=== PATIENT | male | born 1970 ===

== ENCOUNTER 2018-11-09 05:56 | Emergency (ER) | payer MEDICARE, OTHER ==
[~2018-11-09] VITALS: Ht 182.9 cm; Wt 108.9 kg
== END 2018-11-09 08:38 | disposition home or self-care (01) ==
LOC: ER 05:56 → EDBD 05:56 → ER 08:38
DX: M75.32 Calcific tendinitis of left shoulder (principal); I10 Essential (primary) hypertension; Z86.73 Personal history of transient ischemic attack (TIA), and cerebral infarction without residual deficits; Z87.891 Personal history of nicotine dependence
CPT/HCPCS: 73030; 96372; 99282; 99283; 99283-25; A9270; J3301

== ENCOUNTER 2019-02-06 07:54 | Day surgery (SDC) | payer MEDICARE, OTHER ==
[~2019-02-06] VITALS: Ht 182.9 cm; Wt 109.3 kg
[~2019-02-06 07:54] MED LIST: ALBU90OI INH; CARB200 PO; FAMO20 PO; FINA5 PO; GABA100 PO; HYDPAM50 PO; LISI5 PO; MELATONIN5 M1 PO; MONT10T PO; OMEPRAZOLE20 MG PO; THERA1 EACH PO; WARF10 PO
--- NOTE | 2019-02-06 08:41 | NUR ---
Ambulatory in Day Surgery Patient states colon prep results clear. History, Chart, Medications and Allergies reviewed before start of procedure. Patient States Post-Procedure ride home has been arranged.
--- NOTE | 2019-02-06 10:01 | NUR ---
02/06/19 1001 BARB HYDE History, Chart, Medications and Allergies reviewed before start of procedure.3-LEAD EKG REVIEWED WITH PHYSICIAN PRIOR TO START OF PROCEDURE.O2 VIA N/C INTACT THROUGHOUT SEDATION/PROCEDURE. MONITOR INTACT WITH CONTINUOUS PULSE OXIMETRY AND INTERMITTENT BP.PATIENT DETERMINED TO BE ASA APPROPRIATE FOR PROPOFOL SEDATION PRIOR TO START OF PROCEDURE BY .
--- NOTE | 2019-02-06 11:45 | NUR ---
Patient up to Ambulate independently. Gait steady. Discharge instructions reviewed with patient. Patient verbalizes understanding. Copy given to patient to take home. PATIENT'S RIDE CALLED X4 WITH NO ANSWER. RN LOOKED IN WAITING AREAS AND ADMITTING, RIDE WAS NOT THERE. ON THE 5TH CALL PT'S RIDE ANSWERED AND STATED HE WAS HERE. Discharged via wheelchair to private car for ride home WITH [employer].
== END 2019-02-06 11:15 | disposition home or self-care (01) ==
LOC: ORSCMMR 07:54 → ORD 09:00 → ORSCMMR 09:00
PROVIDERS: Internal Medicine Gastroenterology
PROC: 0DB48ZX Excision of Esophagogastric Junction, Via Natural or Artificial Opening Endoscopic, Diagnostic (ICD-10-PCS; principal; 2019-02-06 09:00)
PROC: 0DB58ZX Excision of Esophagus, Via Natural or Artificial Opening Endoscopic, Diagnostic (ICD-10-PCS; principal; 2019-02-06 09:00)
PROC: 0DJD8ZZ Inspection of Lower Intestinal Tract, Via Natural or Artificial Opening Endoscopic (ICD-10-PCS; principal; 2019-02-06 09:00)
PROC: 0DB68ZX Excision of Stomach, Via Natural or Artificial Opening Endoscopic, Diagnostic (ICD-10-PCS; principal; 2019-02-06 09:00)
DX: R13.14 Dysphagia, pharyngoesophageal phase (principal); K21.9 Gastro-esophageal reflux disease without esophagitis; K29.70 Gastritis, unspecified, without bleeding; B96.81 Helicobacter pylori [H. pylori] as the cause of diseases classified elsewhere; Z12.11 Encounter for screening for malignant neoplasm of colon; Z86.010 Personal history of colon polyps; Z86.73 Personal history of transient ischemic attack (TIA), and cerebral infarction without residual deficits; G40.909 Epilepsy, unspecified, not intractable, without status epilepticus; Z86.718 Personal history of other venous thrombosis and embolism; Z79.01 Long term (current) use of anticoagulants; Z87.891 Personal history of nicotine dependence; Z79.899 Other long term (current) drug therapy; J45.909 Unspecified asthma, uncomplicated
CPT/HCPCS: 43239; G0105; 88305; 88342; J2704; J7120

== ENCOUNTER 2019-10-06 10:58 | Emergency (ER) | payer MEDICARE, OTHER ==
[~2019-10-06] VITALS: Ht 182.9 cm; Wt 111.1 kg
[2019-10-06] MEDS ORDERED: EPIPEN0.3 MG/0.1 INJ (12:34)
[2019-10-06] MEDS ORDERED: FAMO20 PO (12:34)
[2019-10-06] MEDS ORDERED: PRED20 PO (12:34)
== END 2019-10-06 12:51 | disposition home or self-care (01) ==
LOC: ER 10:58
DX: T63.441A Toxic effect of venom of bees, accidental (unintentional), initial encounter (principal); I10 Essential (primary) hypertension; Z86.73 Personal history of transient ischemic attack (TIA), and cerebral infarction without residual deficits; Z79.899 Other long term (current) drug therapy; Z87.891 Personal history of nicotine dependence
CPT/HCPCS: 36415; 96374; 96375; 99283-25; J1100; J1200

== ENCOUNTER 2020-03-13 01:41 | Emergency (ER) | payer MEDICARE, OTHER ==
[~2020-03-13] VITALS: Ht 182.9 cm; Wt 115.2 kg
[~2020-03-13 01:41] MED LIST changes: +EPIPEN0.3 MG/0.1 INJ; +PRED20 PO
[2020-03-13] MEDS ORDERED: XARELTO20 MG PO (04:14)
[2020-03-13 06:26] LABS: Source, Urine Clean Catch
[2020-03-13 06:35] LABS: BASOPHILS ABSOLUTE AUTO 0.02 K/mm3 (0.00-0.23); BASOPHILS PERCENT AUTO 0 % (0-2); EOSINOPHILS ABSOLUTE AUTO 0.15 K/mm3 (0.00-0.68); EOSINOPHILS PERCENT AUTO 3 % (0-6); Hematocrit 45.5 % (37.0-53.0); Hemoglobin 15.1 g/dL (13.5-17.5); IMMATURE GRAN ABSOLUTE AUTO 0.02 K/mm3 (0.00-0.10); IMMATURE GRAN PERCENT AUTO 0 % (0-1); LYMPHOCYTES ABSOLUTE AUTO 2.38 K/mm3 (0.84-5.20); LYMPHOCYTES PERCENT AUTO 47 % (21-46); MONOCYTES ABSOLUTE AUTO 0.39 K/mm3 (0.16-1.47); MONOCYTES PERCENT AUTO 8 % (4-13); Mean Corpuscular HGB 30.7 pg (26.0-34.0); Mean Corpuscular HGB Conc 33.2 g/dL (31.5-36.5); Mean Corpuscular Volume 93 fL (80-100); Mean Platelet Volume 9.4 fL (9.1-12.4); NEUTROPHILS ABSOLUTE AUTO 2.06 K/mm3 (1.96-9.15); NEUTROPHILS PERCENT AUTO 41 % (41-73); Platelet Count 210 K/mm3 (150-400); RDW Standard Deviation 41.1 fL (35.1-46.3); Red Blood Cell Count 4.92 M/mm3 (4.30-5.90); White Blood Cell Count 5.02 K/mm3 (4.00-11.30)
[2020-03-13 06:35] LABS: Appearance, Urine Clear (Clear); Bilirubin, Urine Neg (Neg); Blood, Urine Neg (Neg); Color, Urine Yellow (P-Yellow); Glucose Qualitative, Urine Neg (Neg); Ketones, Urine Neg (Neg); Leukocyte Esterase, Urine Neg (Neg); Nitrite, Urine Neg (Neg); Protein, Urine Neg (Neg); Urobilinogen, Urine NORM (Normal)
[2020-03-13 06:54] LABS: Alanine Aminotransfer (ALT/SGP 34 U/L (12-78); Albumin, Blood 3.9 g/dL (3.4-5.0); Albumin/Globulin Ratio 1.2 (0.8-1.8); Alk Phos 137 U/L (50-136); Anion Gap 3 mmol/L (6-16); Aspartate Aminotrans (AST/SGOT 15 U/L (12-37); Bilirubin, Total 0.4 mg/dL (0.1-1.0); Blood Urea Nitrogen 22 mg/dL (8-24); Bun/Creatinine Ratio 24.4 (12.0-20.0); CO2, Blood 31 mmol/L (21-32); Calcium, Blood 8.6 mg/dL (8.5-10.1); Chloride, Blood 107 mmol/L (98-108); Globulin, Blood 3.2 g/dL (2.2-4.0); Glomerular Filtration Rate >60 (60-); Glucose, Blood 93 mg/dL (70-99); Potassium, Blood 4.1 mmol/L (3.5-5.5); Sodium, Blood 141 mmol/L (136-145); Total Protein, Blood 7.1 g/dL (6.4-8.2)
[2020-03-13] MEDS ORDERED: DOC250 PO (09:46)
[2020-03-13] MEDS ORDERED: HYDACE10B PO (09:46)
== END 2020-03-13 10:24 | disposition home or self-care (01) ==
LOC: ER 01:41
PROVIDERS: Emergency Medicine
DX: K42.9 Umbilical hernia without obstruction or gangrene (principal); I10 Essential (primary) hypertension; Z79.01 Long term (current) use of anticoagulants; Z79.899 Other long term (current) drug therapy; Z86.73 Personal history of transient ischemic attack (TIA), and cerebral infarction without residual deficits; Z87.891 Personal history of nicotine dependence
CPT/HCPCS: 36415; 74177; 80053; 81003; 83690; 85025; 96361; 96374-59; 96375; 99283-25; J1170; J2270; J2405; J7030; Q9967

== ENCOUNTER 2020-04-16 07:12 | Day surgery (SDC) | payer MEDICARE, SELFPAY ==
[~2020-04-16] VITALS: Ht 182.9 cm; Wt 116.6 kg
[~2020-04-16 07:12] MED LIST changes: +DOC250 PO; +HYDACE10B PO; +XARELTO20 MG PO
--- NOTE | 2020-04-16 10:30 | NUR ---
Patient up to Ambulate independently. Gait steady. Discharge instructions reviewed with patient. Patient verbalizes understanding. Copy given to patient to take home. Discharged via wheelchair to private car for ride home WITH SIGNIFICANT OTHER. PT GIVEN ICEPACK TO TAKE HOME.
== END 2020-04-16 10:30 | disposition home or self-care (01) ==
LOC: ORSCMMR 07:12 → ORD 08:30 → ORSCMMR 08:30
PROVIDERS: Surgery
PROC: 0WUF0JZ Supplement Abdominal Wall with Synthetic Substitute, Open Approach (ICD-10-PCS; principal; 2020-04-16 08:30)
DX: K42.0 Umbilical hernia with obstruction, without gangrene (principal); Z98.84 Bariatric surgery status; R56.9 Unspecified convulsions; F32.9 Major depressive disorder, single episode, unspecified; Z86.718 Personal history of other venous thrombosis and embolism; Z79.01 Long term (current) use of anticoagulants; Z79.899 Other long term (current) drug therapy; Z87.891 Personal history of nicotine dependence
CPT/HCPCS: C1781; J0690; J1100; J1885; J2250; J2405; J2704; J3010; J7120

== ENCOUNTER 2020-06-03 20:39 | Emergency (ER) | payer OTHER, MEDICARE ==
[~2020-06-03] VITALS: Ht 182.9 cm; Wt 108.9 kg
== END 2020-06-03 22:55 | disposition home or self-care (01) ==
LOC: ER 20:39
DX: S00.03XA Contusion of scalp, initial encounter (principal); F10.129 Alcohol abuse with intoxication, unspecified; I10 Essential (primary) hypertension; Z79.01 Long term (current) use of anticoagulants; Z79.899 Other long term (current) drug therapy; Z86.73 Personal history of transient ischemic attack (TIA), and cerebral infarction without residual deficits; W01.198A Fall on same level from slipping, tripping and stumbling with subsequent striking against other object, initial encounter
CPT/HCPCS: 70450; 99284-25

== ENCOUNTER 2020-06-04 12:09 | Emergency (ER) | payer OTHER, MEDICARE ==
[~2020-06-04] VITALS: Ht 180.3 cm; Wt 113.4 kg
== END 2020-06-04 13:52 | disposition home or self-care (01) ==
LOC: ER 12:09
DX: S09.90XA Unspecified injury of head, initial encounter (principal); I10 Essential (primary) hypertension; Z91.030 Bee allergy status; Z79.899 Other long term (current) drug therapy; Z86.73 Personal history of transient ischemic attack (TIA), and cerebral infarction without residual deficits; Z87.891 Personal history of nicotine dependence; W01.198A Fall on same level from slipping, tripping and stumbling with subsequent striking against other object, initial encounter
CPT/HCPCS: 70450; 99283-25

== ENCOUNTER 2022-01-13 08:48 | Observation (INO) | payer OTHER ==
[~2022-01-13] VITALS: Ht 182.9 cm; Wt 110.3 kg
[~2022-01-13 08:48] MED LIST changes: +Voltaren100 GM TOP
[2022-01-13 10:23] LABS: BASOPHILS ABSOLUTE AUTO 0.01 K/mm3 (0.00-0.23); BASOPHILS PERCENT AUTO 0 % (0-2); EOSINOPHILS ABSOLUTE AUTO 0.05 K/mm3 (0.00-0.68); EOSINOPHILS PERCENT AUTO 1 % (0-6); Hematocrit 45.9 % (37.0-53.0); Hemoglobin 15.6 g/dL (13.5-17.5); IMMATURE GRAN ABSOLUTE AUTO 0.01 K/mm3 (0.00-0.10); IMMATURE GRAN PERCENT AUTO 0 % (0-1); LYMPHOCYTES ABSOLUTE AUTO 1.47 K/mm3 (0.84-5.20); LYMPHOCYTES PERCENT AUTO 33 % (21-46); MONOCYTES ABSOLUTE AUTO 0.36 K/mm3 (0.16-1.47); MONOCYTES PERCENT AUTO 8 % (4-13); Mean Corpuscular HGB 30.8 pg (26.0-34.0); Mean Corpuscular Volume 91 fL (80-100); Mean Platelet Volume 9.1 fL (9.1-12.4); NEUTROPHILS ABSOLUTE AUTO 2.61 K/mm3 (1.96-9.15); NEUTROPHILS PERCENT AUTO 58 % (41-73); Platelet Count 230 K/mm3 (150-400); RDW Coefficient Variation 12.3 % (11.7-14.2); RDW Standard Deviation 40.6 fL (35.1-46.3); Red Blood Cell Count 5.06 M/mm3 (4.30-5.90); White Blood Cell Count 4.51 K/mm3 (4.00-11.30)
[2022-01-13 10:39] LABS: U Amphetamine Screen Not Detected; U Barbituate Screen Not Detected; U Benzodiazapine Screen Not Detected; U Buprenorphine Screen Not Detected; U Cannabinoids Screen Not Detected; U Cocaine Screen Not Detected; U Methadone Screen Not Detected; U Methamphetamine Screen Not Detected; U Opiates Screen Not Detected; U Oxycodone Screen Not Detected; U Phencyclidine Screen Not Detected; U Propoxyphene Screen Not Detected
[2022-01-13 10:51] LABS: Alanine Aminotransfer (ALT/SGP 26 U/L (12-78); Albumin, Blood 3.9 g/dL (3.4-5.0); Albumin/Globulin Ratio 1.1 (0.8-1.8); Alk Phos 119 U/L (50-136); Anion Gap 4 mmol/L (6-16); Aspartate Aminotrans (AST/SGOT 18 U/L (12-37); Bilirubin, Total 0.4 mg/dL (0.1-1.0); Blood Urea Nitrogen 11 mg/dL (8-24); Bun/Creatinine Ratio 15.7 (12.0-20.0); CO2, Blood 28 mmol/L (21-32); Calcium, Blood 8.9 mg/dL (8.5-10.1); Chloride, Blood 107 mmol/L (98-108); Ethanol (Alcohol), Blood, Med <3 mg/dL; Globulin, Blood 3.4 g/dL (2.2-4.0); Glomerular Filtration Rate 110 (60-); Glucose, Blood 101 mg/dL (70-99); Potassium, Blood 3.9 mmol/L (3.5-5.5); Sodium, Blood 139 mmol/L (136-145); Total Protein, Blood 7.3 g/dL (6.4-8.2)
[2022-01-13 12:54] LABS: Cholesterol 172 mg/dL (50-200); HDL Cholesterol 86 mg/dL (>39); LDL/HDL RATIO 0.9; Low Density Lipoprotein Chol 74 mg/dL (0-110); Triglycerides 62 mg/dL (30-160); Very Low Density Lipoprot Chol 12 mg/dL (6-32)
[2022-01-13] MEDS ORDERED: THERA-D2000 UNIT PO (14:41)
[2022-01-13] MEDS ORDERED: FISH OIL 1,2001 EAC7 PO (14:42)
--- NOTE | 2022-01-13 14:45 | NUR ---
ADMIT NOTE: PTREPORT RECEIVED FROM CHEIKH BENITEZ. PT ARRIVED TO ROOM 309 AT 309, IND TO BED. PT A/O X 4 PLEASANT AND COOPERATIVE. EXHIBITS LEFT FACIAL DROOP AND PAIN TO LEFT ARM CYRUS DEFICITS. PT PLACED ON TELE, ORIENTED TO ROOM AND CALL LIGHT. MED REC COMPLETED.
--- NOTE | 2022-01-13 18:47 | NUR ---
SHIFT SUMMARY: PT ADMITTED TODAY DUE TO LEFT SIDED WEAKNESS WITH ISCHEMIC CHANGES TO HEAD. PT A/O X4 IND ON ADMIT WITH COMPLAINTS OF LEFT FACIAL NUMBNESS, SLURRED SPPECH AND LEFT ARM WEAKNESS. PT HAD NO FURTHER COMPLAINTS THIS SHIFT AND REPORTED AT END OF SHIFT THE NUMBNESS ON LEFT SIDE OF FACE AND WEAKNESS IN ARM WAS IMPROVING. PT CURRENTLY SHOWERING AT THIS TIME AND DENIES ANY CONCERNS.
[2022-01-14 05:53] LABS: BASOPHILS ABSOLUTE AUTO 0.02 K/mm3 (0.00-0.23); BASOPHILS PERCENT AUTO 1 % (0-2); EOSINOPHILS ABSOLUTE AUTO 0.07 K/mm3 (0.00-0.68); EOSINOPHILS PERCENT AUTO 2 % (0-6); Hematocrit 44.7 % (37.0-53.0); Hemoglobin 15.1 g/dL (13.5-17.5); IMMATURE GRAN ABSOLUTE AUTO 0.01 K/mm3 (0.00-0.10); IMMATURE GRAN PERCENT AUTO 0 % (0-1); LYMPHOCYTES ABSOLUTE AUTO 1.46 K/mm3 (0.84-5.20); LYMPHOCYTES PERCENT AUTO 35 % (21-46); MONOCYTES ABSOLUTE AUTO 0.34 K/mm3 (0.16-1.47); MONOCYTES PERCENT AUTO 8 % (4-13); Mean Corpuscular HGB 31.1 pg (26.0-34.0); Mean Corpuscular HGB Conc 33.8 g/dL (31.5-36.5); Mean Corpuscular Volume 92 fL (80-100); Mean Platelet Volume 9.4 fL (9.1-12.4); NEUTROPHILS ABSOLUTE AUTO 2.25 K/mm3 (1.96-9.15); NEUTROPHILS PERCENT AUTO 54 % (41-73); Platelet Count 215 K/mm3 (150-400); RDW Coefficient Variation 12.4 % (11.7-14.2); RDW Standard Deviation 41.9 fL (35.1-46.3); Red Blood Cell Count 4.85 M/mm3 (4.30-5.90); White Blood Cell Count 4.15 K/mm3 (4.00-11.30)
[2022-01-14 06:37] LABS: Albumin, Blood 3.4 g/dL (3.4-5.0); Albumin/Globulin Ratio 1.1 (0.8-1.8); Bilirubin, Total 0.3 mg/dL (0.1-1.0); Bun/Creatinine Ratio 24.6 (12.0-20.0); Calcium, Blood 9.2 mg/dL (8.5-10.1); Creatinine, Blood 0.73 mg/dL (0.60-1.20); Globulin, Blood 3.1 g/dL (2.2-4.0); Thyroid Stimulating Hormone 1.48 uIU/mL (0.360-4.800); Total Protein, Blood 6.5 g/dL (6.4-8.2)
--- NOTE | 2022-01-14 07:34 | NUR ---
SHIFT SUMMARY A&O X4. VSS. DENIES PAIN. STANDBY ASSIST TO BATHROOM. PT STATES HE DOES NOT HAVE LEFT SIDE FACIAL NUMBNESS ANYMORE. PT SAYS HE FEELS BETTER. WILL CONTINUE WITH PLAN OF CARE.
[2022-01-14] MEDS ORDERED: ATOR40TA PO (12:33)
--- NOTE | 2022-01-14 15:50 | NUR ---
SHIFT SUMMARY PTN A&O X4, SEEN BY DR MATOS WHO INITIATED D/C FOR PTN. PTN D/C'D AT 1255. TELEMETRY WAS D/C'D. PERIPHERAL IV WAS REMOVED WITH NO UNTOWARD EVENT. DC PAPERWORK WAS REVIEWED WITH PTN AND SIGNIFICANT OTHER, PTN VOICED UNDERSTANDING AND TALKED BACK INSTRUCTIONS REGARDING IMPORTANCE OF DIET, EXERCISE, MED MGT, AND BP CHECKS. ALL QUESTIONS WERE ANSWERED. PTN WAS TRANSPORTED BY TO EXIT BY KALEB OLEA.
== END 2022-01-14 12:56 | disposition home or self-care (01) ==
LOC: ER 08:48 → MEDS 08:49
PROVIDERS: Student in an Organized Health Care Education/Training Program; ADMIT Internal Medicine
DX: G45.9 Transient cerebral ischemic attack, unspecified (principal); I10 Essential (primary) hypertension; E78.5 Hyperlipidemia, unspecified; G47.33 Obstructive sleep apnea (adult) (pediatric); E66.9 Obesity, unspecified; Z68.31 Body mass index [BMI] 31.0-31.9, adult; N40.0 Benign prostatic hyperplasia without lower urinary tract symptoms; R56.9 Unspecified convulsions; Z86.718 Personal history of other venous thrombosis and embolism; Z79.01 Long term (current) use of anticoagulants
CPT/HCPCS: 36415; 70450; 70496; 70498; 70551; 80053; 80061; 83036; 84443; 85025; 92523; 93005; 93010; 93306; 97116; 97161; 97530; A9270; G0378; G0480; Q9967

== ENCOUNTER 2022-05-18 12:46 | Emergency (ER) | payer OTHER ==
[~2022-05-18] VITALS: Ht 182.9 cm; Wt 108.9 kg
[~2022-05-18 12:46] MED LIST changes: +ATOR40TA PO; +FISH OIL 1,2001 EAC7 PO; +THERA-D2000 UNIT PO
[2022-05-18] MEDS ORDERED: Robaxin750 MG PO (16:52)
== END 2022-05-18 17:36 | disposition home or self-care (01) ==
LOC: ER 12:46
DX: S06.0X9A Concussion with loss of consciousness of unspecified duration, initial encounter (principal); S40.012A Contusion of left shoulder, initial encounter; S80.11XA Contusion of right lower leg, initial encounter; S80.01XA Contusion of right knee, initial encounter; M24.9 Joint derangement, unspecified; W10.9XXA Fall (on) (from) unspecified stairs and steps, initial encounter
CPT/HCPCS: 70450; 70486; 71260; 72125; 73030; 73080; 73110; 73130; 73562-RT; 73590; 74177; J2270; J2405; Q9967

== ENCOUNTER 2022-05-21 03:57 | Emergency (ER) | payer OTHER ==
[~2022-05-21] VITALS: Ht 182.9 cm; Wt 111.1 kg
[~2022-05-21 03:57] MED LIST changes: +Robaxin750 MG PO
== END 2022-05-21 05:07 | disposition home or self-care (01) ==
LOC: ER 03:57
DX: S40.012A Contusion of left shoulder, initial encounter (principal); I10 Essential (primary) hypertension; Z91.030 Bee allergy status; Z79.899 Other long term (current) drug therapy; Z86.73 Personal history of transient ischemic attack (TIA), and cerebral infarction without residual deficits; W19.XXXA Unspecified fall, initial encounter
CPT/HCPCS: A9270; J1885

== ENCOUNTER 2022-08-09 10:02 | Emergency (ER) | payer OTHER ==
[~2022-08-09] VITALS: Ht 182.9 cm; Wt 121.1 kg
[~2022-08-09 10:02] MED LIST changes: +HYDR1TAB94 PO
[2022-08-09] MEDS ORDERED: TRAM50 PO (11:01)
[2022-08-09 11:15] VITALS: BP 138/79
== END 2022-08-09 11:30 | disposition home or self-care (01) ==
LOC: ER 10:02
DX: S46.012A Strain of muscle(s) and tendon(s) of the rotator cuff of left shoulder, initial encounter (principal); M12.512 Traumatic arthropathy, left shoulder; I10 Essential (primary) hypertension; Z86.73 Personal history of transient ischemic attack (TIA), and cerebral infarction without residual deficits; Z91.030 Bee allergy status; Z91.038 Other insect allergy status; Z79.01 Long term (current) use of anticoagulants; Z79.899 Other long term (current) drug therapy; Z87.891 Personal history of nicotine dependence; W10.9XXA Fall (on) (from) unspecified stairs and steps, initial encounter
CPT/HCPCS: 99282

== ENCOUNTER 2023-04-16 07:17 | Day surgery (SDC) | payer OTHER ==
[~2023-04-16] VITALS: Ht 182.9 cm; Wt 120.2 kg
[~2023-04-16 07:17] MED LIST changes: +TRAM50 PO
[2023-04-16] MEDS ORDERED: Lactated Ringer's 1,000 ML IV ONE ×2 (07:43→08:00)
[2023-04-16] MEDS ORDERED: propofoL 60 ML IV ONE (07:50)
[2023-04-16] MEDS ORDERED: OMEP20ER (08:00)
[2023-04-16] MEDS ORDERED: FURO20 (08:03)
[2023-04-16] MEDS ORDERED: GABA300 (08:04)
[2023-04-16] MEDS ORDERED: BACLOFEN5 M1 (08:05)
--- NOTE | 2023-04-16 08:29 | NUR ---
04/16/23 0829 JUANI RAMOS FIRST AND SECOND IVS BLEW
[2023-04-16 09:29] VITALS: BP 103/71
== END 2023-04-16 09:33 | disposition home or self-care (01) ==
LOC: ORSCSDS 07:17
PROVIDERS: Surgery
PROC: 0DBM8ZX Excision of Descending Colon, Via Natural or Artificial Opening Endoscopic, Diagnostic (ICD-10-PCS; principal; 2023-04-16 08:45)
DX: Z12.11 Encounter for screening for malignant neoplasm of colon (principal); D12.4 Benign neoplasm of descending colon; I10 Essential (primary) hypertension; F32.A Depression, unspecified; Z86.73 Personal history of transient ischemic attack (TIA), and cerebral infarction without residual deficits; Z79.02 Long term (current) use of antithrombotics/antiplatelets; Z79.899 Other long term (current) drug therapy; G47.33 Obstructive sleep apnea (adult) (pediatric); Z87.891 Personal history of nicotine dependence
CPT/HCPCS: 88305; J2704; J7120

== ENCOUNTER 2023-09-05 10:46 | Emergency (ER) | payer OTHER ==
[~2023-09-05] VITALS: Ht 182.9 cm; Wt 111.1 kg
[~2023-09-05 10:46] MED LIST changes: +BACLOFEN5 M1; +FURO20; +GABA300; +OMEP20ER
[2023-09-05 13:00] VITALS: BP 132/85
== END 2023-09-05 13:00 | disposition home or self-care (01) ==
LOC: ER 10:46
DX: M25.512 Pain in left shoulder (principal); I10 Essential (primary) hypertension; Z79.02 Long term (current) use of antithrombotics/antiplatelets; Z79.899 Other long term (current) drug therapy; Z91.030 Bee allergy status; Z86.73 Personal history of transient ischemic attack (TIA), and cerebral infarction without residual deficits
CPT/HCPCS: 73030

== ENCOUNTER 2024-03-24 14:56 | Emergency (ER) | payer OTHER ==
[~2024-03-24] VITALS: Ht 182.9 cm; Wt 108.9 kg
[2024-03-24 15:08] VITALS: BP 150/100
== END 2024-03-24 17:00 | disposition home or self-care (01) ==
LOC: ER 14:56
DX: J06.9 Acute upper respiratory infection, unspecified (principal); I10 Essential (primary) hypertension; Z98.84 Bariatric surgery status
CPT/HCPCS: 87081; 87430; 99283

== ENCOUNTER 2024-09-01 09:58 | Emergency (ER) | payer OTHER ==
[~2024-09-01] VITALS: Ht 182.9 cm; Wt 117.9 kg
[2024-09-01 10:03] VITALS: BP 148/98
[2024-09-01] MEDS ORDERED: OXYC5 PO (10:19)
== END 2024-09-01 10:24 | disposition home or self-care (01) ==
LOC: ER 09:58
DX: M25.561 Pain in right knee (principal); M25.461 Effusion, right knee
CPT/HCPCS: 99283

== ENCOUNTER 2024-09-05 06:19 | Day surgery (SDC) | payer OTHER ==
[~2024-09-05] VITALS: Ht 182.9 cm; Wt 113.2 kg
[~2024-09-05 06:19] MED LIST changes: +OXYC5 PO
[2024-09-05] MEDS ORDERED: CeFAZolin Sodium 2,000 MG VIAL ONE (06:39)
[2024-09-05] MEDS ORDERED: OXCARBAZEPINE150 M1 (06:47)
[2024-09-05] MEDS ORDERED: DESCOVY 200-251 EAC1 (06:48)
[2024-09-05] MEDS ORDERED: Vitamin B-12100 MCG (06:49)
[2024-09-05] MEDS ORDERED: ERGO400 (06:50)
[2024-09-05] MEDS ORDERED: VITAMIN C125 MG (06:50)
[2024-09-05] MEDS ORDERED: NS 100 ML IV ONE (07:12)
[2024-09-05] MEDS ORDERED: Midazolam HCl 1MG / ML 2ML Vial ONE (07:27)
[2024-09-05] MEDS ORDERED: FentaNYL Citrate 50 MCG/ML 2 ML Injection ONE ×2 (07:27→08:26)
[2024-09-05] MEDS ORDERED: Dexamethasone Sod Phos 10 MG/ML 1ML VIAL ONE (08:17)
[2024-09-05] MEDS ORDERED: Ondansetron HCl 2 MG / ML 2ML Vial ONE (08:17)
[2024-09-05] MEDS ORDERED: Ketorolac Tromethamine 30mg Vial ONE (08:18)
[2024-09-05 09:10] VITALS: BP 119/85
== END 2024-09-05 09:53 | disposition home or self-care (01) ==
LOC: ORSCSDS 06:19
PROVIDERS: Orthopaedic Surgery
PROC: 0SBC4ZZ Excision of Right Knee Joint, Percutaneous Endoscopic Approach (ICD-10-PCS; principal; 2024-09-05 07:30)
DX: S83.241A Other tear of medial meniscus, current injury, right knee, initial encounter (principal); M17.0 Bilateral primary osteoarthritis of knee; I10 Essential (primary) hypertension; E78.5 Hyperlipidemia, unspecified; Z86.73 Personal history of transient ischemic attack (TIA), and cerebral infarction without residual deficits; R56.9 Unspecified convulsions; F32.A Depression, unspecified; G89.4 Chronic pain syndrome; K21.9 Gastro-esophageal reflux disease without esophagitis; Z98.84 Bariatric surgery status; Z86.718 Personal history of other venous thrombosis and embolism; E66.9 Obesity, unspecified; Z68.33 Body mass index [BMI] 33.0-33.9, adult; Z79.01 Long term (current) use of anticoagulants; Z79.899 Other long term (current) drug therapy; Z87.891 Personal history of nicotine dependence
CPT/HCPCS: 88304; 89060; J0690; J1100; J1885; J2250; J2405; J2704; J3010; J7120

== ENCOUNTER → 2024-10-15 | Outpatient (CLI) | payer OTHER ==
[~2024-10-15] MED LIST changes: +DESCOVY 200-251 EAC1; +ERGO400; +OXCARBAZEPINE150 M1; +VITAMIN C125 MG; +Vitamin B-12100 MCG
[2024-10-15 16:30] LABS: BODY FLUID RBC 0.008 M/mm3 (0-0)
[2024-10-15 16:31] LABS: RBC Count, Synovial Fluid 8000 /mm3 (0-0); WBC Count, Synovial Fluid 174 /mm3 (0-180)
[2024-10-15 17:31] LABS: Lymphs, Synovial Fluid 40 % (0-15); Monocytes/Macrophages, Synovia 52 % (0-65); Neutrophils, Synovial Fluid 8 % (0-24)
[2024-10-15 17:36] LABS: Appearance, Synovial Fluid Hazy (Clear); Color, Synovial Fluid Dark Yellow (None-P Yel)
== END ==
LOC: LAB 15:50 → LAB SHORT 15:50
PROVIDERS: Orthopaedic Surgery
DX: M25.461 Effusion, right knee (principal); Z98.890 Other specified postprocedural states
CPT/HCPCS: 87070; 87075; 87205; 89051; 89060